=== PATIENT | female | born 1970 | race Caucasian/White ===

== ENCOUNTER 2021-10-15 00:29 | Emergency (ER) | payer OTHER ==
[~2021-10-15 00:29] MED LIST: FLUO-96 PO; No Home Medications; PROZ40CA PO; XANA0.5T PO
[2021-10-15] MEDS ORDERED: BUSP5TA PO (00:58)
[2021-10-15] MEDS ORDERED: LORA2CON5 PO (00:59)
[2021-10-15 01:33] LABS: HEMATOCRIT 27.2 % (36.0-47.0); HEMOGLOBIN 8.3 g/dl (12.0-15.5); MEAN CORPUSCULAR HEMOGLOBIN 25.8 pg (27.0-33.0); MEAN CORPUSCULAR HGB CONC 30.5 g/dl (32.0-36.5); MEAN CORPUSCULAR VOLUME 84.5 fl (80.0-96.0); PLATELET COUNT, AUTOMATED 395 10^3/uL (150-450); RED BLOOD COUNT 3.22 10^6/uL (4.00-5.40); WHITE BLOOD COUNT 10.2 10^3/uL (4.0-10.0)
[2021-10-15] MEDS ORDERED: LORA1TAB4 PO (01:57)
[2021-10-15 02:14] LABS: RSV AMPLIFICATION NEGATIVE (NEGATIVE)
[2021-10-15 02:33] LABS: ACETAMINOPHEN LEVEL < 2.0 UG/ML (10.0-30.0); ALBUMIN 3.1 GM/DL (3.2-5.2); ALT/SGPT 20 U/L (12-78); BILIRUBIN,DIRECT < 0.1 MG/DL (0.0-0.2); BLOOD UREA NITROGEN 15 MG/DL (7-18); CALCIUM LEVEL 8.3 MG/DL (8.5-10.1); CARBON DIOXIDE LEVEL 29 MEQ/L (21-32); CHLORIDE LEVEL 109 MEQ/L (98-107); CREATININE FOR GFR 0.77 MG/DL (0.55-1.30); ETHYL ALCOHOL (ETHANOL) < 0.003 % (0.000-0.010); GLOMERULAR FILTRATION RATE > 60.0 (>58); GLUCOSE, FASTING 117 MG/DL (70-100); POTASSIUM SERUM 4.1 MEQ/L (3.5-5.1); SALICYLATE LEVEL 1.8 MG/DL (5.0-30.0); SODIUM LEVEL 142 MEQ/L (136-145); THYROID STIMULATING HORMONE 0.363 uIU/ML (0.358-3.740); TOTAL PROTEIN 6.2 GM/DL (6.4-8.2)
[2021-10-15 02:38] LABS: HCG, SERUM QUALITATIVE NEGATIVE (NEGATIVE)
[2021-10-15 02:50] LABS: BILIRUBIN,TOTAL < 0.1 MG/DL (0.2-1.0)
[2021-10-15] MEDS ORDERED: HOME MED LIST COMPLETE! XX SCH (06:25)
[2021-10-15 11:32] LABS: AMPHETAMINES LEVEL URINE NEGATIVE (NEGATIVE); BARBITURATES URINE NEGATIVE (NEGATIVE); BENZODIAZEPINES URINE NEGATIVE (NEGATIVE); CANNABINOIDS URINE NEGATIVE (NEGATIVE); COCAINE METABOLITE URINE NEGATIVE (NEGATIVE); METHADONE URINE NEGATIVE (NEGATIVE); OPIATES URINE NEGATIVE (NEGATIVE); PHENCYCLIDINE URINE NEGATIVE (NEGATIVE)
[2021-10-15 13:31] VITALS: BP 139/80
== END 2021-10-15 13:41 | disposition home or self-care (01) ==
LOC: M ED 00:29
DX: F43.20 Adjustment disorder, unspecified (principal); F41.9 Anxiety disorder, unspecified; F32.9 Major depressive disorder, single episode, unspecified; F17.200 Nicotine dependence, unspecified, uncomplicated; F12.10 Cannabis abuse, uncomplicated